=== PATIENT | female | born 1965 | race Caucasian/White ===

== ENCOUNTER → 2017-06-13 | Outpatient (CLI) | payer OTHER, BC ==
[~2017-06-13] MED LIST: ATOR10TA88 PO; BUPR150T7 PO; DOXY100C76 PO; ESTROGEN PO; LORA10CA2 PO; OMEGCAP2 PO; ZNTT/150 PO
== END | disposition home or self-care (01) ==
LOC: C.RDSM 09:00
PROVIDERS: ATTEND Physical Medicine & Rehabilitation Sports Medicine
DX: M19.031 Primary osteoarthritis, right wrist (principal)

== ENCOUNTER → 2017-06-20 | Outpatient (CLI) | payer OTHER, BC ==
[~2017-06-20] MED LIST changes: +ATOR10TA82 PO; -ATOR10TA88 PO
--- NOTE | 2017-06-20 14:36 | DIAGNOSTIC IMAGING REPORT ---
MRI THE RIGHT WRIST NO CONTRAST CLINICAL HISTORY: OSTEOARTHRITIS OF R WRIST right wrist pain COMPARISON STUDY: Conventional radiographic study dated 06/13/2017 FINDINGS: Imaging was performed the sagittal, axial, and coronal planes. There is a posttraumatic deformity of the distal radius. There are defects present consistent with old remove hardware. There are moderate articular surface arthritic changes. There are subchondral cystic changes present within the lunate and triquetrum, likely on an arthritic basis. There are no findings to indicate a triangular fibrocartilage tear given the limitations of a nonarthrographic study. There is no evidence of tendon tear or tendinopathy. IMPRESSION: 1. Posttraumatic changes of the distal radius with secondary articular surface arthritic changes 2. Subchondral cystic changes within the lunate and triquetrum, likely on arthritic basis 3. No evidence of tendon tear or significant tendinopathy Electronically signed by: Mike Monroe M.D. 06/20/2017 2:34 PM Dictated Date/Time: 06/20/2017 2:31 PM
== END | disposition home or self-care (01) ==
LOC: C.MRI 13:33
PROVIDERS: ATTEND Physical Medicine & Rehabilitation Sports Medicine
DX: M19.031 Primary osteoarthritis, right wrist (principal)

== ENCOUNTER → 2018-02-21 | Day surgery (SDC) | payer OTHER ==
[2017-12-15 10:22] VITALS: Ht 154.9 cm; Wt 87.3 kg
[~2018-02-21] VITALS: Ht 154.9 cm; Wt 87.3 kg
[~2018-02-21] MED LIST changes: +ACET1TAB84 PO; +ATOR-22 PO; -ATOR10TA82 PO; +ATROPINE SULFATE 0.1 MG/ML 5ML SYR IV PRN; -BUPR150T7 PO; +BUPR200T2 PO; +CLINDAMYCIN IV 900 MG in DEXTROSE 5% 50ML 44 ML IV SCH; +CLINDAMYCIN PHOS 150 MG/ML 2 ML VIAL ONE; +DEXAMETHASONE SOD INJ 4 MG/ML VIAL ONE; +FENTANYL CITRATE INJ 50 MCG/1 ML 2 ML VIAL IV PRN; +FENTANYL CITRATE INJ 50 MCG/1 ML 2 ML VIAL ONE; +KETOROLAC TROMETHAMINE 30 MG/ML VIAL IV. PRN; +LACTATED RINGER'S 1000ML 1,000 ML IV SCH; +LEVOFLOXACIN 500 MG TAB PO SCH; +LIDOCAINE HCL 2% 2 ML VIAL (20MG/ML) ONE; +MIDAZOLAM HCL 1 MG/ML 2ML VIAL ONE; +ONDANSETRON INJ 2 MG/ML 2 ML VIAL IV PRN; +ONDANSETRON INJ 2 MG/ML 2 ML VIAL ONE; +OXYCODONE/ACETAMINOPHEN 5-325 TAB PO PRN; +PROPOFOL IV EMULSION 10 MG/ML 20 ML VIAL ONE; +RANI150T85 PO; +ROPIVACAINE 0.5% 5 MG/ML 30 ML VIAL ONE; +SODIUM CHLORIDE 0.9% 1000ML 1,000 ML IV SCH; -ZNTT/150 PO
--- NOTE | 2018-02-21 06:38 | History & Physical Bridge Note ---
H&P Re-Evaluation Bridge Note: I have examined the patient, reviewed the History & Physical and in the interval since the performance of the History & Physical I have noted the following changes of clinical significance:consent obtained. No changes noted
--- NOTE | 2018-02-21 06:39 | Discharge Instructions ---
Discharge Instructions Date of Service Feb 21, 2018. Admission Reason for Admission: Ulnar Impingement Right Wrist Discharge Discharge Diagnosis / Problem: same Discharge Goals Goal(s): Decrease discomfort, Improve function, Increase independence Activity Recommendations Activity Limitations: as noted below Lifting Limitations: until after follow-up appointment Exercise/Sports Limitations: until after follow-up appointment May Resume Sexual Activity: after follow-up appointment Shower/Bathe: keep incision dry Driving or Machine Use: resume 3 days after discharge . Instructions / Follow-Up Instructions / Follow-Up DIET: * Resume previous diet. MEDICATIONS: * Please take your prescriptions as instructed at your pre-op appointment and/ or see medication discharge instructions listed above. * If concerns develop, call your physician's office at . SPECIAL CARE INSTRUCTIONS: * Ice/Elevate as instructed. * Keep dressing clean, dry, intact. * Your surgical extremity may be discolored due to prepping agents used on the skin. A bluish-green tint is a normal variant and should not cause alarm. Call your doctor at [phone] if: * Temperature above 101 degrees * Pain not relieved by pain medicine ordered * There is increased drainage or redness from any incision * You have any unanswered questions, problems or concerns. FOLLOW UP VISIT: * If not already scheduled, please call the office at to schedule a follow-up appointment. Current Hospital Diet Patient's current hospital diet: Discharge Diet Recommended Diet: Regular Diet Procedures Procedures Performed: see op note Pending Studies Studies pending at discharge: no Medical Emergencies . Who to Call and When: Medical Emergencies: If at any time you feel your situation is an emergency, please call 911 immediately. . Non-Emergent Contact Non-Emergency issues call your: Specialist Call Non-Emergent contact if: temperature is above 101.5, wound has increased drainage, wound has increased redness, wound has increased pain . "Provider Documentation" section prepared by Manuel Landa. .
--- NOTE | 2018-02-21 08:09 | [facility] Post Operative Brief Note ---
Immediate Operative Summary Operative Date Feb 21, 2018. Pre-Operative Diagnosis ULNAR IMPINGEMENT RIGHT WRIST Post-Operative Diagnosis SAME Procedure(s) Performed Right Wrist Ulnar Shortening Osteotomy Surgeon DR. Carina BAKER Supervisor Type Disk Quality Control Surgeon(s) RONNI PRITCHETT PA-C Estimated Blood Loss TRACE Findings Consistent with Post-Op Diagnosis Fluids (cc crystalloids) 500cc Specimens NONE Drains None Anesthesia Type General Regional Complication(s) none Disposition Accompanied Pt To Recover: no Overlapping Procedure I was immediately available: during the entire case
--- NOTE | 2018-02-21 08:15 | [facility] Operative Report ---
Operative Report Operative Date Feb 21, 2018. Pre-Operative Diagnosis ULNAR IMPINGEMENT RIGHT WRIST Post-Operative Diagnosis SAME Procedure(s) Performed Right Wrist Ulnar Shortening Osteotomy Surgeon DR. Carina BAKER Quality Assurance Calibrator Surgeon(s) RONNI PRITCHETT PA-C Estimated Blood Loss TRACE Fluids 500cc Specimens NONE Drains None Anesthesia Type General Regional Complication(s) none Disposition no Indications This 52-year-old white female presented to the office with complaints of chronic right wrist pain after previously sustaining a distal radius fracture over 10 years ago. She had tried conservative care measures without improvement of her wrist pain. She elected to proceed with surgical intervention in hopes of alleviating some of her discomfort. Preoperative imaging was obtained. She understands that the current procedure may not alleviate all of her arthritic wrist discomfort. Description of Procedure Patient was administered a regional anesthetic and then taken to the operating room where she was given general anesthesia. She was prepped and draped in usual sterile fashion. Please see Dr. Baker's operative report for specifics of the procedure. I was present for the entire case from initial patient positioning through final wound closure. Assistance was provided in tissue retraction, hemostasis, hardware placement, and final wound closure. Patient was taken to the recovery room in satisfactory condition. I attest to the content of the Intraoperative Record and any orders documented therein. Any exceptions are noted below.
--- NOTE | 2018-02-21 08:31 | OPERATIVE REPORT ---
DATE OF OPERATION: 02/21/2018 SURGEON: Manuel Landa MD COMMUNITY OUTREACH COORDINATOR: Suman Villarreal PA-C. No resident or fellow available. PREOPERATIVE DIAGNOSES: Ulnar impingement syndrome, right upper extremity, status post deformity, distal radius fracture years ago. POSTOPERATIVE DIAGNOSES: Ulnar impingement syndrome, right upper extremity, status post deformity, distal radius fracture years ago. OPERATION PERFORMED: Ulnar shortening osteotomy, right upper extremity with compression plate fixation and DBX bone grafting. PERIOPERATIVE SITUATION: Medically cleared female who has ulnar impingement following deformity from a severe comminuted fracture, distal radius. At this point in time, she has ulnar impingement syndrome and pain. She has failed conservative management for years and wants to try to see if it eliminates some of her symptoms. She was told that this may not completely correct everything based on the fact she has degenerative disease as well from the fracture, which is also routine complications noted on the consent. DESCRIPTION OF PROCEDURE: The patient appropriately identified, site verified, consent verified, 900 mg clindamycin confirmed as being given. The right upper extremity was prepped and draped in routine fashion. A subcutaneous approach to the ulna was then made beginning distally and extending proximally, care taken to protect all the sensory nerves. Subperiosteal dissection then carried out. A 7-hole plate was then positioned on the volar side and then secured distally with 3 screws with excellent fixation. This plate was then removed and the osteotomy completed taking about 2.5 mm of bone using the saw. This is combined with the saw blade, probably took about 3 mm of bone. It was irrigated during the osteotomy. Both cuts were made before completing the osteotomy through and then the piece removed. The plate was then reapplied distally and using 4 screws proximally. Compression was obtained where a volar contact was made with good compression. The wound was then irrigated one final time and then the piece that was removed was crushed with a rongeur and the pieces placed as well as 1 cm DBX putty. This was placed all around the osteotomy site. The wound was then closed with 2-0 Vicryl and stainless steel clips. The tourniquet was then deflated and the fingers pinked up immediately. Total tourniquet time was 44 minutes. Multiple plane fluoroscopic views during the case revealed excellent plate fixation compression and screw fixation. The patient was transferred to the recovery room in satisfactory condition having tolerated the procedure well. Estimated blood loss trace. Crystalloid 500 mL. She did have an upper extremity block for postop management. No DVT prophylaxis. I attest to the content of the Intraoperative Record and any orders documented therein. Any exception s are noted below.
--- NOTE | 2018-02-21 09:39 | Anesthesia Progress Nt - [facility] ---
Anesthesia Post Op Note Date & Time Feb 21, 2018 at 09:39 Vital Signs Pain Intensity: 0 Vital Signs Past 12 Hours Date Time Temp Pulse Resp B/P (MAP) Pulse Ox O2 Delivery O2 Flow Rate FiO2 02/21/18 09:15 121/72 02/21/18 09:14 72 20 94 02/21/18 09:14 73 20 02/21/18 09:11 36.8 68 20 121/72 95 Room Air 02/21/18 09:11 127/82 02/21/18 09:09 66 16 02/21/18 09:09 67 16 96 02/21/18 09:05 113/70 02/21/18 09:04 66 30 94 02/21/18 09:04 69 30 02/21/18 09:00 128/73 02/21/18 08:59 72 18 94 02/21/18 08:59 72 18 02/21/18 08:55 116/86 02/21/18 08:54 67 21 94 02/21/18 08:54 69 21 02/21/18 08:51 109/76 02/21/18 08:49 64 30 02/21/18 08:49 66 30 100 02/21/18 08:47 118/67 02/21/18 08:44 78 17 98 02/21/18 08:44 75 17 02/21/18 08:41 122/89 02/21/18 08:39 87 20 98 02/21/18 08:39 85 20 02/21/18 08:35 136/86 02/21/18 08:34 80 27 02/21/18 08:34 77 27 98 02/21/18 08:30 115/72 02/21/18 08:29 73 27 02/21/18 08:29 73 27 98 02/21/18 08:25 118/68 02/21/18 08:24 80 28 02/21/18 08:24 80 28 98 18 08:20 105/57 02/21/18 08:19 74 16 18 08:19 74 16 96 02/21/18 08:15 108/64 02/21/18 08:14 69 11 95 02/21/18 08:14 69 11 02/21/18 08:12 103/69 02/21/18 08:11 36.9 69 16 103/69 94 Mask 6 02/21/18 07:21 36.8 66 16 135/86 (102) 97 Room Air 02/21/18 07:03 0 02/21/18 06:58 62 14 Notes Mental Status: alert / awake / arousable, participated in evaluation Pt Amnestic to Procedure: Yes Nausea / Vomiting: adequately controlled Pain: adequately controlled Airway Patency, RR, SpO2: stable & adequate BP & HR: stable & adequate Hydration State: stable & adequate Anesthetic Complications: no major complications apparent
[2018-02-21 09:50] VITALS: BP 113/70; PULSE 70; TEMP 36.2; O2SAT 95
== END | disposition home or self-care (01) ==
LOC: X.SURG 06:06
PROVIDERS: ATTEND Physical Medicine & Rehabilitation Sports Medicine
DX: M25.831 Other specified joint disorders, right wrist (principal); M21.831 Other specified acquired deformities of right forearm; E66.9 Obesity, unspecified; K21.9 Gastro-esophageal reflux disease without esophagitis; Z79.899 Other long term (current) drug therapy; Z87.891 Personal history of nicotine dependence; Z68.36 Body mass index [BMI] 36.0-36.9, adult

== ENCOUNTER → 2018-03-27 | Outpatient (CLI) | payer OTHER ==
[~2018-03-27] MED LIST changes: -ATROPINE SULFATE 0.1 MG/ML 5ML SYR IV PRN; -CLINDAMYCIN IV 900 MG in DEXTROSE 5% 50ML 44 ML IV SCH; -CLINDAMYCIN PHOS 150 MG/ML 2 ML VIAL ONE; -DEXAMETHASONE SOD INJ 4 MG/ML VIAL ONE; -FENTANYL CITRATE INJ 50 MCG/1 ML 2 ML VIAL IV PRN; -FENTANYL CITRATE INJ 50 MCG/1 ML 2 ML VIAL ONE; -KETOROLAC TROMETHAMINE 30 MG/ML VIAL IV. PRN; -LACTATED RINGER'S 1000ML 1,000 ML IV SCH; -LEVOFLOXACIN 500 MG TAB PO SCH; -LIDOCAINE HCL 2% 2 ML VIAL (20MG/ML) ONE; -MIDAZOLAM HCL 1 MG/ML 2ML VIAL ONE; -ONDANSETRON INJ 2 MG/ML 2 ML VIAL IV PRN; -ONDANSETRON INJ 2 MG/ML 2 ML VIAL ONE; -OXYCODONE/ACETAMINOPHEN 5-325 TAB PO PRN; -PROPOFOL IV EMULSION 10 MG/ML 20 ML VIAL ONE; -ROPIVACAINE 0.5% 5 MG/ML 30 ML VIAL ONE; -SODIUM CHLORIDE 0.9% 1000ML 1,000 ML IV SCH
== END | disposition home or self-care (01) ==
LOC: C.RDSM 13:08
PROVIDERS: ATTEND Physical Medicine & Rehabilitation Sports Medicine
DX: M19.031 Primary osteoarthritis, right wrist (principal); S22.39XA Fracture of one rib, unspecified side, initial encounter for closed fracture; X58.XXXA Exposure to other specified factors, initial encounter